=== PATIENT | female | born 1965 | race African-American/Black ===

== ENCOUNTER 2018-12-30 10:41 | Emergency (ER) | payer MEDICARE ==
--- OUTSIDE RECORDS SUMMARY | 2018-12-30 10:44 | XMS REPORT ---
Author Author [facility] Address Unknown Phone Unavailable Care Team Providers Care Ultrasound Sonographer Name Role Phone Unavailable Unavailable Problems This patient has no known problems. Allergies, Adverse Reactions, Alerts This patient has no known allergies or adverse reactions. Medications This patient has no known medications. Encounters Start Date/Time End Date/Time Encounter Type Admission Type Attending Clinicians [facility] Care Department Encounter ID 2018-12-08 11:11:00 2018-12-08 11:11:00 Outpatient [facility] [id number]
--- OUTSIDE RECORDS SUMMARY | 2018-12-30 10:44 | XMS REPORT ---
Author Author Radha Brand Organization [employer] Address Unknown Phone Unavailable Care Team Providers Care Medical Specialist Name Role Phone Radha Brand CP Unavailable Allergies, Adverse Reactions, Alerts Substance Reaction Event Type N.K.D.A. Info Not Available Non Drug Allergy Problems Problem Type Condition Code Onset Dates Condition Status Problem Hyperlipidemia, unspecified hyperlipidemia type E78.5 Active Assessment Essential hypertension I10 Active Problem Essential hypertension I10 Active Assessment Hyperlipidemia, unspecified hyperlipidemia type E78.5 Active Assessment Positive depression screening Z13.89 Active Medications Medication Code System Code Instructions Start Date End Date Status Dosage Simvastatin [facility] [address]-17 20 MG Orally Once a day Apr 01, 2018 Active 1 tablet in the evening Potassium Chloride [facility] [address]-83 20 MEQ/15ML (10%) Orally Once a day Active 15 ml Anastrozole [facility] [address]-53 1 MG Orally Once a day Active 1 tablet Diazepam [facility] [address]-61 5 MG Orally Twice a day Active 1 tablet as needed Valsartan-Hydrochlorothiazide [facility] [address]-05 80-12.5 MG Orally Once a day Active 1 tablet Results No Known Results Summary Purpose [employer] Submission
--- OUTSIDE RECORDS SUMMARY | 2018-12-30 10:44 | XMS REPORT ---
Author Author Radha Brand Organization [employer] Address Unknown Phone Unavailable Care Team Providers Care Operator Helper Name Role Phone Radha Brand CP Unavailable Allergies, Adverse Reactions, Alerts Substance Reaction Event Type N.K.D.A. Info Not Available Non Drug Allergy Problems Problem Type Condition Code Onset Dates Condition Status Assessment Positive depression screening Z13.89 Active Assessment Encounter for screening fecal occult blood testing Z12.11 Active Assessment Well adult exam Z00.00 Active Medications Medication Code System Code Instructions Start Date End Date Status Dosage Anastrozole [facility] [address]-12 1 MG Orally Once a day Active [address] [facility] [address]-91 40 MG Orally Twice a day Active [address] [facility] [address]-12 20 MEQ/15ML (10%) Orally Once a day Active [address] [facility] [address]-24 5 MG Orally Twice a day Active 1 tablet as needed Results Name Result Date Reference Range Unit Abnormality Flag Thyroid Panel With TSH ----T3 Uptake 24 20180324 24-39 % ----Free Thyroxine Index 2.0 20180324 1.2-4.9 ----TSH 2.180 20180324 0.450-4.500 uIU/mL ----Thyroxine (T4) 8.5 20180324 4.5-12.0 ug/dL CBC With Differential/Platelet ----Basos 0 20180324 Not Estab. % ----MCV 93 20180324 79-97 fL ----Hematocrit 38.8 20180324 34.0-46.6 % ----Eos 2 20180324 Not Estab. % ----MCHC 31.4 20180324 31.5-35.7 g/dL L ----Monocytes 8 20180324 Not Estab. % ----MCH 29.3 20180324 26.6-33.0 pg ----Lymphs 34 36089221 Not Estab. % ----Eos (Absolute) 0.1 90638064 0.0-0.4 x10E3/uL ----WBC 3.4 68499277 3.4-10.8 x10E3/uL ----Monocytes(Absolute) 0.3 06423458 0.1-0.9 x10E3/uL ----Lymphs (Absolute) 1.2 69477605 0.7-3.1 x10E3/uL ----Hemoglobin 12.2 82728923 11.1-15.9 g/dL ----Neutrophils (Absolute) 1.9 90358309 1.4-7.0 x10E3/uL ----RBC 4.16 81415623 3.77-5.28 x10E6/uL ----Immature Grans (Abs) 0.0 31221091 0.0-0.1 x10E3/uL ----Immature Granulocytes 0 36182519 Not Estab. % ----Neutrophils 56 37374708 Not Estab. % ----Baso (Absolute) 0.0 82076335 0.0-0.2 x10E3/uL ----RDW 14.4 17805136 12.3-15.4 % ----Platelets 208 85425874 150-379 x10E3/uL Lipid Panel ----LDL Cholesterol Calc 183 20180324 0-99 mg/dL H ----Cholesterol, Total 257 20180324 100-199 mg/dL H ----Triglycerides 77 20180324 0-149 mg/dL ----HDL Cholesterol 59 20180324 >39 mg/dL ----VLDL Cholesterol Shaquille 15 15832520 5-40 mg/dL [id number] - HIV 4th Generation ----HIV Screen 4th Generation wRfx Non Reactive [id number] Non Reactive PDF Report ----PDF Report1 LCLS [id number] Hemoglobin A1c ----Estimated Average Glucose 114 20180324 mg/dL ----Hemoglobin A1c 5.6 20180324 %Hb Cardiovascular Risk Assessment ----Interpretation Note [id number] ----PDF Image . [id number] Vitamin D, 25-Hydroxy ----Vitamin D, 25-Hydroxy 41.9 20180324 30.0-100.0 ng/mL Comp. Metabolic Panel (14), CMP ----Creatinine 0.60 20180324 0.57-1.00 mg/dL ----BUN 11 20180324 6-24 mg/dL ----eGFR If Africn Am 120 67351181 >59 mL/min/1.73 ----eGFR If NonAfricn Am 104 34963595 >59 mL/min/1.73 ----Sodium 140 20180324 134-144 mmol/L ----BUN/Creatinine Ratio 18 20180324 9-23 ----Chloride 102 20180324 96-106 mmol/L ----Potassium 4.2 01680276 3.5-5.2 mmol/L ----Carbon Dioxide, Total 19 20180324 20-29 mmol/L L ----Protein, Total 8.3 56567868 6.0-8.5 g/dL ----Calcium 9.8 21578537 8.7-10.2 mg/dL ----Globulin, Total 3.9 95400960 1.5-4.5 g/dL ----Albumin 4.4 97305023 3.5-5.5 g/dL ----Bilirubin, Total 0.3 20180324 0.0-1.2 mg/dL ----Glucose 87 20180324 65-99 mg/dL ----A/G Ratio 1.1 67907799 1.2-2.2 L ----ALT (SGPT) 14 20180324 0-32 IU/L ----Alkaline Phosphatase 116 20180324 39-117 IU/L ----AST (SGOT) 24 20180324 0-40 IU/L Summary Purpose [employer] Submission
--- NOTE | 2018-12-30 11:20 | NUR ---
PT LEFT PRIOR TO TRIAGE.
== END 2018-12-30 11:20 | disposition short-term general hospital (02) ==
LOC: FSED 10:41
DX: R42 Dizziness and giddiness (principal)